=== PATIENT | female | born 1970 | race Native Hawaiian/Other Pacific Islander ===

== ENCOUNTER 2020-01-29 13:49 | Outpatient (CLI) | payer OTHER | END 2020-01-29 23:38 | disposition home or self-care (01) | LOC: INF 13:49 | DX: E86.0 Dehydration (principal) ==

== ENCOUNTER 2020-01-29 18:07 | Outpatient (CLI) | payer OTHER ==
[2020-01-29 20:23] LABS: PLATELET COUNT 267 K/uL (152-353)
[2020-01-29 21:06] LABS: POTASSIUM 3.8 mmol/L (3.6-5.2)
== END 2020-01-29 23:40 | disposition home or self-care (01) ==
LOC: LAB 18:07
PROVIDERS: Nurse Practitioner Family
DX: Z98.84 Bariatric surgery status (principal); R11.0 Nausea; E86.0 Dehydration; Z13.29 Encounter for screening for other suspected endocrine disorder; Z13.220 Encounter for screening for lipoid disorders; Z13.0 Encounter for screening for diseases of the blood and blood-forming organs and certain disorders involving the immune mechanism
CPT/HCPCS: 80053; 80061; 84443; 85027

== ENCOUNTER 2020-01-31 14:31 | Outpatient (CLI) | payer OTHER ==
[~2020-01-31] VITALS: Ht 170.2 cm; Wt 99.8 kg
[2020-01-31 14:40] VITALS: BP 129/63; TEMP 99.3
== END 2020-01-31 15:45 | disposition home or self-care (01) ==
LOC: INF 14:31
DX: R11.0 Nausea (principal); Z98.84 Bariatric surgery status; E86.0 Dehydration
CPT/HCPCS: 96360